=== PATIENT | male | born 1985 | race Caucasian/White ===

== ENCOUNTER 2016-08-01 19:19 | Emergency (ER) | payer SELFPAY ==
[2016-08-01 19:25] VITALS: BP 128/73; PULSE 84; RESP 18; TEMP 98.1; O2SAT 97
[2016-08-01] MEDS ORDERED: PENICILLIN VK 500 MG TAB PO ONE (19:42)
--- NOTE | 2016-08-01 19:46 | EDPHY ---
H & P Time Seen by Provider: 08/01/16 19:36 HPI/ROS: CHIEF COMPLAINT: Dental pain. HISTORY OF PRESENT ILLNESS: The patient is a 30-year-old male who has a remote history of using methamphetamine. He has significant tooth decay. He has developed left upper tooth pain over the past 2-3 days. He has a long-standing dental fracture at the location of his discomfort. He denies any fevers or chills. He does note mild facial swelling. No neck pain. No difficulty swallowing. No trismus. REVIEW OF SYSTEMS: My complete review of systems is negative except as mentioned in the HPI. Past Medical/Surgical History: Includes remote methamphetamine use. The patient is homeless. Smoking Status: Current every day smoker Physical Exam: Vitals noted GENERAL: No acute distress, alert. HEENT: Eyes normal to inspection, normal pharynx. Patient has mild left facial swelling with no erythema or warmth. The patient has poor dentition. He has multiple missing teeth as well as multiple dental fractures. In the left upper maxilla he has a noted dental fracture with decay. There is no surrounding erythema. No localized the swelling. NECK: No thyromegaly, no lymphadenopathy, supple. RESPIRATORY: No respiratory distress. CVS: Regular rate and rhythm, no rubs, murmurs, or gallops ABDOMEN: Soft, nontender, nondistended, no organomegaly. SKIN: Normal color, no rash, warm, dry. No pallor. Multiple tattoos EXTREMITIES: Normal. NEURO/PSYCH: Alert and oriented x3, normal mood and affect. No obvious cranial nerve deficit. Constitutional: Initial Vital Signs Temperature (C) 36.7 C 08/01/16 19:22 Heart Rate 84 08/01/16 19:22 Respiratory Rate 18 08/01/16 19:22 Blood Pressure 128/73 H 08/01/16 19:22 O2 Sat (%) 97 08/01/16 19:22 O2 Delivery Mode Room Air Allergies/Adverse Reactions: No Allergies [NKDA] Allergy (Verified 08/01/16 19:21) Home Medications: Medication Instructions Recorded Estradiol 08/01/16 Penicillin V Potassium [Pen Vk] 500 mg PO TID #21 tab 08/01/16 Spironolactone 08/01/16 Medical Decision Making ED Course/Re-evaluation: In the emergency department I discussed possible etiologies with the patient. Patient will be given penicillin. He is given a dose of penicillin prior to leaving and a prescription was written. The patient does not want any pain medication. Differential Diagnosis: My differential includes but is not limited to dental fracture, dental abscess, cellulitis, gingivitis, bacteremia, sepsis Departure - Departure Disposition: Home, Routine, Self-Care Clinical Impression: Dental fracture, Toothache Condition: Good Instructions: Toothache (ED), Dental Caries (ED) Additional Instructions: Return with increasing pain, fever, facial redness, increased facial swelling or any other concerns. Take your entire course of antibiotics. Referrals: NONE *PRIMARY CARE P,. [Primary Care Provider] - As per Instructions [facility] [Outside] - As per Instructions [facility] [Outside] - 2-3 days without fail Prescriptions: Penicillin V Potassium [Pen Vk] 500 mg PO TID #21 tab
== END 2016-08-01 20:16 | disposition home or self-care (01) ==
DX: K03.81 Cracked tooth (principal); F17.200 Nicotine dependence, unspecified, uncomplicated